=== PATIENT | male | born 1965 | race Caucasian/White ===

== ENCOUNTER 2017-07-02 15:17 | Inpatient (IN) ==
--- NOTE | 2017-07-02 16:25 | Emergency Department Note ---
Disposition Clinical Impression: Intertrochanteric fracture of right femur Qualifiers: Encounter type: initial encounter Fracture type: closed Fracture alignment: nondisplaced Qualified Code(s): S72.144A - Nondisplaced intertrochanteric fracture of right femur, initial encounter for closed fracture Disposition: Admitted As Inpatient Condition: Fair General Adult HPI - General Chief complaint: ED Fall Stated complaint: fall Time Seen by Provider: 07/02/17 15:22 Source: patient, EMS Limitations: no limitations Nursing Notes Reviewed: Yes Vital Signs Reviewed: Yes - History of Present Illness HPI Narrative: Patient is a 52-year-old male who presents by squad from his work after tripping on some material on the floor and falling directly onto his right hip. His main complaint is right hip pain. She denies any head injury or neck injury or any injury to his upper extremity or chest or abdomen. He denies loss of consciousness. 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 He has not been able to bear weight since falling. He said the pain is worse with flexion and extension of his hip. He denies any knee or ankle involvement. No numbness or tingling or weakness in the extremity. Pain Scale: 4 - Related Data Home Medications Medication Instructions Recorded Confirmed No Known Home Drugs 07/02/17 07/02/17 Allergies Allergy/AdvReac Type Severity Reaction Status Date / Time Penicillins Allergy Rash Verified 07/02/17 15:19 All systems ED: reviewed and negative except as stated. Gastrointestinal: Denies: abdominal pain, nausea, vomiting Musculoskeletal: Denies: back pain, neck pain Integumentary: Denies: rash, abrasion Neurological: Denies: headache, weakness Psychiatric: Denies: anxiety, depression Past Medical History - Past Medical History Medical history: Reports: no medical history Psychiatric history: Reports: no psych history - Social History Smoking Status: Current every day smoker Smokeless Tobacco Status: No Alcohol use: Reports: occasionally Drug use: Reports: none Physical Exam Patient does not appear to be in any acute distress. He does have his right leg propped up on 4 blankets. He states his pain is a 110 unless he try to flex or extend his hip and it becomes an 8 out of 10. - General Limitations: no limitations General appearance: alert, appears intoxicated - Head Head exam: atraumatic, normocephalic, normal inspection - Eye Eye exam: Present: normal appearance, PERRL, EOMI - ENT ENT exam: normal exam, normal oropharynx, mucous membranes moist - Neck Neck exam: Present: normal inspection, full ROM, trachea midline. Absent: tenderness - Chest Chest inspection: Present: normal inspection, symmetric chest wall rise. Absent : tenderness - Respiratory Respiratory exam: Present: normal lung sounds bilaterally. Absent: respiratory distress - Cardiovascular Cardiovascular exam: Present: regular rate, normal rhythm, normal heart sounds - Abdominal Exam Abdominal exam: Present: soft, Non-Tender, normal bowel sounds. Absent: tenderness - Extremities Exam Extremities exam: Present: tenderness, other (Patient has a negative leg roll on the right side. He has pain with passive range of motion concerning flexion and extension of the hip. There is no knee involvement or ankle involvement on the right side. He is neurovascularly intact.) - Expanded Lower Extremity Exam Hip/Pelvis exam: Present: tenderness (Patient has tenderness to palpation along the lateral trochanter on the right side.) Knee exam: Present: normal inspection, full ROM. Absent: tenderness Lower leg exam: Present: normal inspection, full ROM. Absent: tenderness Ankle exam: Present: normal inspection, full ROM. Absent: tenderness Foot/toe exam: Present: normal inspection, full ROM. Absent: tenderness Neurovascular/Tendon exam: Present: normal capillary refill. Absent: pulse deficit, motor deficit, sensory deficit, pallor - Back Exam Back exam: Present: normal inspection, full ROM. Absent: tenderness - Neurological Exam Neurological exam: Present: alert, oriented X3 - Psychiatric Psychiatric exam: Present: normal affect, normal mood - Skin Skin exam: Present: warm, dry, intact, normal color Course Course Narrative: Patient's 52-year-old male who fell at work onto his right hip he has lateral tenderness to the trochanter. We ordered a hip x-ray and AP pelvis. The patient has difficulty with bearing weight on his right leg. He states his pain is a 1/10 as long as his leg is propped up on pillows - Reevaluation(s) Reevaluation #1: Patient's hip x-ray shows a inter-trochanteric fracture that is nondisplaced. I will treat the patient with 4 mg of morphine 4 mg of Zofran for pain. Time: 16:46 Reevaluation #2: I spoke with Dr. García. He states he will see the patient, however he would prefer to admit to hospitalist. Time: 17:05 Vital Signs Temperature 98.3 F 07/02/17 15:21 Pulse Rate 71 07/02/17 15:21 Respiratory Rate 18 07/02/17 15:21 Blood Pressure 151/86 07/02/17 15:21 O2 Sat by Pulse Oximetry 99 07/02/17 15:21 Temperature 98.7 F 07/04/17 03:36 Pulse Rate 68 07/04/17 03:36 Respiratory Rate 15 07/04/17 03:36 Blood Pressure 131/72 07/04/17 03:36 O2 Sat by Pulse Oximetry 96 07/04/17 03:36 Oxygen Delivery Oxygen Delivery Room Air Medical Decision Making - Medical Records Medical records reviewed: Yes I reviewed the patient's medical records. - Lab Data Lab results reviewed: Yes I reviewed the patient's lab results. Result diagrams: 07/03/17 04:27 07/03/17 04:27 - Radiology Data Radiology results reviewed: Yes I reviewed the patient's radiology results. Hip X-Ray 07/02/17 15:35 IMPRESSION: Nondisplaced subtrochanteric fracture. D/ / Marcos Ratliff MD / Marcos Ratliff MD Interpreting Provider: Marcos Ratliff MD Attestation Statement - Attestation Attestation: I examined this patient and my medical decision-making was reviewed with the Resident Physician. I agree with the documented findings, disposition and treatment plan as described except to the extent set forth below.
[2017-07-02] MEDS ORDERED: Ondansetron 4 MG/2 ML VIAL IVP ONE (16:53)
[2017-07-02] MEDS ORDERED: *HR* Morphine 2 MG/ML SYRINGE IVP ONE ×3 (17:02→17:40)
[2017-07-02] MEDS: *HR* Morphine 2 MG/ML SYRINGE IVP ONE ×2 (17:06→17:57)
[2017-07-02 20:24] LABS: Basophils # 0.1 K/mcL (0.0-0.2); Basophils % 0.8 %; Eosinophils # 0.1 K/mcL (0.0-0.6); Eosinophils % 0.3 %; Hematocrit 44.9 % (37.5-50.1); Hemoglobin 15.1 g/dL (12.9-16.9); Immature Granulocytes % 0.4 % (0-4); Lymphocytes # 1.6 K/mcL (0.6-4.6); Lymphocytes % 10.7 %; Mean Corpuscular HGB Conc 33.6 g/dL (31.6-35.5); Mean Corpuscular Hemoglobin 29.6 pg (28.0-33.3); Mean Platelet Volume 9.6 fL (9.4-12.4); Monocytes # 0.9 K/mcL (0.0-1.3); Neutrophils # 12.4 K/mcL (1.6-8.9); Platelet Count 245 K/mcL (140-400); Red Cell Distribution Width 12.8 % (11.5-14.5); Segmented Neutrophils % 81.8 %
[2017-07-02 20:37] LABS: BUN/Creatinine Ratio 10 (6-26); Blood Urea Nitrogen 11 mg/dL (8-26); Carbon Dioxide 28 mEq/L (19-29); Chloride 101 mEq/L (98-109); Glucose 181 mg/dL (70-99); Magnesium 1.9 mg/dL (1.6-2.6); Osmolality,Calculated 286 (280-300); Potassium 3.9 mEq/L (3.5-4.5); Sodium 136 mEq/L (136-145); eGFR For African Americans > 60 (> 60); eGFR For Non-African Americans > 60 (> 60)
[2017-07-02 20:39] LABS: INR 1.1; Prothrombin Time 12.1 Seconds (9.4-12.1)
--- NOTE | 2017-07-02 21:35 | Event Note ---
Date of Encounter: 07/02/17 Time of Encounter: 21:33 Patient then examined with nurse practitioner. 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 Orthopedics will evaluate the patient in the morning. Keep NPO after midnight. In case patient needs surgery he has good functional capacity and at least assent to flights of stairs without any symptoms. He denies any prior cardiac history. No chest pain with ambulation. His electro cardiogram shows no ST segment shifts. He should be able to tolerate surgery with no need for further preoperative cardiac testing. Pain control with morphine
[2017-07-02] MEDS ORDERED: *HR* HYDROcodone/Acet 5/325 mg TABLET PO PRN (22:00)
[2017-07-02] MEDS ORDERED: Acetaminophen 325 MG TABLET PO PRN (22:00)
[2017-07-02] MEDS ORDERED: Ondansetron 4 MG/2 ML VIAL IVP PRN (22:00)
[2017-07-02] MEDS ORDERED: Naloxone 0.4 MG/ML INJ IVP PRN (22:00)
[2017-07-02] MEDS ORDERED: *HR* Morphine 2 MG/ML SYRINGE IVP PRN (22:00)
--- NOTE | 2017-07-02 22:26 | Internal Med History&Physical ---
Date of Encounter: 07/03/17 Time of Encounter: 20:30 Assessment and Plan (1) Intertrochanteric fracture of right femur Current visit: Yes Status: Acute Patient presents with fall and injury to his right hip. He states he tripped at work on material but denies any neck or head injury. He denies syncope or dizziness. He states he was unable to get up without assistance and was unable to bear his weight. He states pain is worse with flexion and extension of his hip. Three-view x-ray of the right hip shows nondisplaced intertrochanteric fracture. The femoroacetabular joint is congruent. The ilioischial and iliopectineal lines are intact. Orthopedic surgery consult ordered in ED. PT and OT consults placed for rehabilitation needs. Patient to be placed as falls precautions/up with assist/bed rest with bedside commode with assist only due to pain and unsteadiness. Qualifiers: Encounter type: initial encounter Fracture type: closed Fracture alignment: nondisplaced Qualified Code(s): S72.144A - Nondisplaced intertrochanteric fracture of right femur, initial encounter for closed fracture (2) Fall Current visit: Yes Status: Acute Patient presents with acute fall at work which resulted in current nondisplaced intertrochanteric fracture of the right femur. Patient denies history of falls or syncope and will be placed as falls precautions/up with assist/bed rest with bedside commode with assist only due to pain from fracture. Qualifiers: Encounter type: initial encounter Qualified Code(s): W19.XXXA - Unspecified fall, initial encounter (3) Tobacco abuse counseling Current visit: Yes Status: Acute Patient presents with chronic tobacco abuse. Patient was counseled for over 10 minutes regarding smoking cessation, quitting techniques available, and health benefits of cessation. 21 mg nicotine patch ordered daily. (4) Tobacco abuse Current visit: Yes Status: Chronic Patient presents with history of chronic tobacco abuse smoking 1.5 PPD. 21 mg nicotine patch ordered daily. (5) DVT prophylaxis Current visit: Yes Status: Acute Patient to be placed on DVT prophylaxis due to current admission protocol and bedrest status. Heparin 5000 units subcutaneous every 8 ordered. Internal Medicine - H&P: HPI Chief complaint: Fall/Fracture Admitted From: Emergency Dept Plans for Post Hospital Care: Home History of present illness: Mr. Quiroga is a 52 year old male who presents from the ED with chief complaint of fall and injury to his right hip. He states he tripped at work on material but denies any neck or head injury. He denies syncope or dizziness. He states he was unable to get up without assistance and was unable to bear his weight. He states pain is worse with flexion and extension of his hip. Three-view x- ray of the right hip shows nondisplaced intertrochanteric fracture. The femoroacetabular joint is congruent. The ilioischial and iliopectineal lines are intact. Patient stated his pain is 1 out of 10 unless he flexes or extends and it becomes a 9 out of 10. Patient denies any recent illness, nauseous, vomiting, headache, abdominal pain, generalized weakness, dizziness, syncope, presyncope, or history of falls. Patient currently has no medical history and is occurring every day smoker smoking 1-1/2 packs per day. Tobacco cessation counseling provided to patient for 10 minutes. He reports occasional alcohol use 3-4 times per week. Mr. Quiroga is at moderate risk for morbidity based on current fracture and will be placed his inpatient status with fall precautions/ up with assist/bedrest with bedside commode with assist due to extreme pain and extremity. Stairs have pain medication to be administered per pain management. Orthopedic surgery consult placed in ED. PT and OT consults placed. Patient to be monitored closely for signs of increased pain and/or shortness of breath. Time spent with patient > 40 minutes. Past Med Surg Social Fam HX - Past Medical History Source: patient Medical history: no medical history Psychiatric history: no psych history - Past Surgical History Surgical History: no surgical history - Social History Smoking Status: Current every day smoker Packs per day: 1.5 PPD Smokeless Tobacco Status: No Alcohol use: occasionally (3-4x per week) Drug use: none Occupational status: employed Current living situation: Home Activity Level: Independent ambulation, Very active Recent Out of Country Travel Within the Last 8 Weeks: No Exposure or Possible Exposure to Illness During Travel: No - Family History Father Race: Family Member Ethnicity: Non- Hx Family Cardiac Disorders: Yes Internal Medicine - H&P: Meds No Known Home Drugs 07/02/17 [History] Allergies Penicillins Allergy (Verified 07/02/17 15:19) Rash All Systems PM: A 10-system review of systems was performed and is negative for pertinent findings except as documented above in the HPI. - Constitutional Constitutional: no chills, no fever(s), no night sweats - EENT Eyes: no change in vision, no discharge, no pain, no photophobia Ears: no ear discharge, no ear pain, no tinnitus Nose, mouth and throat: no dysphagia, no nasal discharge, no neck pain, no sore throat - Breasts Breasts: as per HPI - Cardiovascular Cardiovascular ROS IM: no chest pain, no diaphoresis, no dyspnea, no lightheadedness, no palpitations, no syncope - Respiratory Respiratory: no cough, no dyspnea, no wheezing, no excessive phlegm production - Gastrointestinal Gastrointestinal: no abdominal pain, no diarrhea, no hematemesis, no hematochezia, no melena, no nausea, no vomiting - Genitourinary Genitourinary ROS male: as per HPI - Musculoskeletal Musculoskeletal ROS IM: as per HPI, other (Pain in right hip) - Integumentary Integumentary IM: no rash, no unusual bruising - Neurological Neurological ROS: no confusion, no convulsions, no focal weakness, no numbness, no tingling, no tremor(s) - Psychiatric Psychiatric: as per HPI - Endocrine Endocrine IM: as per HPI - Hematologic/Lymphatic Hematologic/Lymphatic: no easy bruising - Allergic/Immunologic Allergic/Immunologic: as per HPI - Constitutional Vitals: Temp Pulse Resp BP Pulse Ox 98.8 F 86 16 132/70 96 07/02/17 20:48 07/02/17 20:48 07/02/17 20:48 07/02/17 20:48 07/02/17 20:48 General appearance: Present: cooperative, mild distress, A&O X 3, pleasant, answers questions appropriately - Head Head exam: Present: atraumatic, normocephalic - Eye Eye exam: Present: PERRL, conjuntiva pink, sclera anicteric Pupils: Present: PERRL - ENT ENT exam: Present: normal exam, normal external ear exam - Neck Neck exam general surgery: Present: supple, trachea midline. Absent: lymphadenopathy - Respiratory Respiratory exam: Present: CTAB. Absent: accessory muscle use, rales, rhonchi, wheezes - Cardiovascular Cardiovascular exam: Present: RRR, +S1, +S2. Absent: diastolic murmur, gallop, rubs, systolic murmur - GI/Abdominal GI/Abdominal exam: Present: normal bowel sounds, soft, no peritoneal signs. Absent: distended, tenderness - Rectal Rectal exam: Present: deferred - Additional comments: exam deferred. - Extremities Exam Extremities exam: Present: warm, radial pulses palpable and symetrical. Absent : calf tenderness, cyanotic, pedal edema Additional comments: Patient is experiencing right hip pain and discomfort. - Back Exam Back exam: Present: normal inspection - Neurological Exam Neurological exam: Present: CN II-XII intact, oriented X3, no focal deficits. Absent: pronater drift, facial droop, speech deficit - Psychiatric Psychiatric exam: Present: normal affect, normal mood - Skin Skin exam: Present: dry, intact Internal Med - H&P Results - Labs CBC & Chem 7: 07/02/17 20:16 07/02/17 20:16 Labs: Short CBC 07/02/17 Range/Units 20:16 WBC 15.2 H (4.3-11.1) K/mcL Hgb 15.1 (12.9-16.9) g/dL Hct 44.9 (37.5-50.1) % Plt Count 245 (140-400) K/mcL Neutrophils # 12.4 H (1.6-8.9) K/mcL BMP 07/02/17 20:16 Sodium 136 Potassium 3.9 Chloride 101 Carbon Dioxide 28 BUN 11 Creatinine 1.07 Glucose 181 H Calcium 9.0 - EKG Data EKG shows normal: sinus rhythm Rate: normal - EKG Data Prior EKG available for review: no EKG comments: 07/03/17 02:36 EKG dated 07/02/17 shows normal sinus rhythm and normal ECG. - Diagnostic Studies Other Images Additional comments: Impressions Hip X-Ray 07/02/17 15:35 IMPRESSION: Nondisplaced subtrochanteric fracture. D/ / Marcos Ratliff MD / Marcos Ratliff MD Interpreting Provider: Marcos Ratliff MD
[2017-07-02] MEDS: *HR* Heparin 5,000 UNIT/ML VIAL SQ SCH (23:37)
[2017-07-03 04:50] LABS: Basophils # 0.1 K/mcL (0.0-0.2); Basophils % 1.2 %; Eosinophils # 0.2 K/mcL (0.0-0.6); Eosinophils % 2.1 %; Hematocrit 43.7 % (37.5-50.1); Hemoglobin 14.9 g/dL (12.9-16.9); Immature Granulocytes % 0.5 % (0-4); Lymphocytes % 19.9 %; Mean Corpuscular HGB Conc 34.1 g/dL (31.6-35.5); Mean Corpuscular Hemoglobin 30.2 pg (28.0-33.3); Mean Corpuscular Volume 88.5 fL (83.0-100.0); Mean Platelet Volume 9.7 fL (9.4-12.4); Monocytes # 0.8 K/mcL (0.0-1.3); Monocytes % 8.2 %; Neutrophils # 6.8 K/mcL (1.6-8.9); Platelet Count 220 K/mcL (140-400); Red Blood Count 4.94 M/mcL (4.19-5.50); Red Cell Distribution Width 13.1 % (11.5-14.5); Segmented Neutrophils % 68.1 %
[2017-07-03 05:08] LABS: BUN/Creatinine Ratio 10 (6-26); Blood Urea Nitrogen 9 mg/dL (8-26); Calcium 8.9 mg/dL (8.6-10.8); Carbon Dioxide 27 mEq/L (19-29); Chloride 103 mEq/L (98-109); Cholesterol 180 mg/dL (< 200); Glucose 102 mg/dL (70-99); HDL Cholesterol 45 mg/dL (40-59); LDL Cholesterol,Calculated 119 mg/dL (0-99); Magnesium 2.1 mg/dL (1.6-2.6); Osmolality,Calculated 283 (280-300); Potassium 3.9 mEq/L (3.5-4.5); Sodium 137 mEq/L (136-145); Triglycerides 78 mg/dL (< 150); eGFR For African Americans > 60 (> 60); eGFR For Non-African Americans > 60 (> 60)
--- NOTE | 2017-07-03 07:56 | Orthopedic Consult Note ---
Date of Encounter: 07/03/17 Time of Encounter: 07:40 Assessment and Plan (1) Intertrochanteric fracture of right femur Current Visit: Yes Status: Acute Xrays show right hip intertrochanteric fracture which will require surgical fixation. Plan for right hip IM nailing by Dr. García today. I discussed the procedure as well as r/b/a with patient and all questions were answered. Consent was obtained and placed in patient's chart. NPO today. Pain control per hospitalist. Qualifiers: Encounter type: initial encounter Fracture type: closed Fracture alignment: nondisplaced Qualified Code(s): S72.144A - Nondisplaced intertrochanteric fracture of right femur, initial encounter for closed fracture History of Present Illness Chief complaint: right hip pain HPI: Mr. Quiroga is a 52 year old male who presented to the ER yesterday for right hip pain that started after he tripped over a cord on the ground at work yesterday. States he landed directly on the right hip and had instant sharp pain in the hip that does not radiate. Currently, he only has pain if he tries to move the leg, no pain at rest. Denies any pain anywhere else. Denies numbness or tingling in lower extremities. Denies hitting head or LOC from injury. Denies chest pain, SOB, fevers. He typically ambulates well. Past Med Surg Social Fam HX - Past Medical History Medical history: no medical history Psychiatric history: no psych history - Past Surgical History Surgical History: no surgical history - Social History Smoking Status: Current every day smoker Packs per day: 1.5 PPD Smokeless Tobacco Status: No Alcohol use: occasionally (3-4x per week) Drug use: none - Family History Father Race: Family Member Ethnicity: Non- Hx Family Cardiac Disorders: Yes Medications and Allergies No Known Home Drugs 07/02/17 [History] Allergies Penicillins Allergy (Verified 07/02/17 15:19) Rash All Systems Reviewed: A 10-system review of systems was performed and is negative for pertinent findings except as documented above in the HPI. - Constitutional Constitutional: as per HPI - Cardiovascular Cardiovascular: as per HPI - Respiratory Respiratory: as per HPI - Musculoskeletal Musculoskeletal: as per HPI Physical Exam - Constitutional Vitals: Temp Pulse Resp BP Pulse Ox 98.1 F 66 14 113/68 96 07/03/17 07:32 07/03/17 07:32 07/03/17 07:32 07/03/17 07:32 07/03/17 07:32 - Hip right Tenderness with palpation: posterior (RLE is shortened and externally rotated with no open wounds or lesions noted. Tenderness to palpaiton of posterior hip. ROM of hip restricted secondary to pain/known fracture, good dorsiflexion of foot. No calf tenderness to palpation. NV intact.) Results - Labs Result Diagrams: 07/03/17 04:27 07/03/17 04:27 Labs: Abnormal lab results Glucose 102 mg/dL (70-99) H 07/03/17 04:27 LDL Cholesterol, Calc 119 mg/dL (0-99) H 07/03/17 04:27 H & H 07/02/17 07/03/17 Range/Units 20:16 04:27 Hgb 15.1 14.9 (12.9-16.9) g/dL Hct 44.9 43.7 (37.5-50.1) % All other labs normal. - Diagnostic results Hip x-ray: report reviewed, image reviewed Consult Discharge Plan - Plan Referrals: NONE,PCP [Primary Care Provider] - - Attending Attestation Case and plan of care discussed with supervising physician who was available for all aspects of care.
[2017-07-03] MEDS ORDERED: Nicotine 21 MG PATCH.TD24 TD SCH (09:00)
[2017-07-03] MEDS: *HR* Heparin 5,000 UNIT/ML VIAL SQ SCH ×2 (09:18→16:34)
[2017-07-03] MEDS ORDERED: 0.9 % Sodium Chloride 1,000 ML IVC SCH (09:30)
--- NOTE | 2017-07-03 12:16 | Internal Med Progress Note ---
Date of Encounter: 07/03/17 Time of Encounter: 09:15 - Assessment and plan (1) Intertrochanteric fracture of right femur Current Visit: Yes Status: Acute Assessment and plan: Continue supportive care and pain control. Patient was evaluated by orthopedics and is scheduled for surgery later today. PTOT after surgery per orthopedics recommendations. Moderate risk for complications as patient is receiving narcotic medications Qualifiers: Encounter type: initial encounter Fracture type: closed Fracture alignment: nondisplaced Qualified Code(s): S72.144A - Nondisplaced intertrochanteric fracture of right femur, initial encounter for closed fracture (2) Tobacco abuse Current Visit: Yes Status: Chronic Assessment and plan: On nicotine patch (3) DVT prophylaxis Current Visit: Yes Status: Acute Assessment and plan: On heparin - Subjective Interval history: Patient continues to have pain in his right hip but this improves when patient is at rest. Receiving narcotic medications which are helping keeping his pain down. Denies any numbness or tingling in his lower extremities. No loss of sensation. - Constitutional Vitals: Temp Pulse Resp BP Pulse Ox 98.0 F 63 18 126/76 96 07/03/17 11:40 07/03/17 11:40 07/03/17 11:40 07/03/17 11:40 07/03/17 11:40 General appearance: Present: cooperative, mild distress, A&O X 3, pleasant, answers questions appropriately - Respiratory Respiratory exam: Present: CTAB. Absent: accessory muscle use, rales, rhonchi, wheezes - Cardiovascular Cardiovascular exam: Present: RRR, +S1, +S2. Absent: diastolic murmur, gallop, rubs, systolic murmur - GI/Abdominal GI/Abdominal exam: Present: normal bowel sounds, soft, no peritoneal signs. Absent: distended, tenderness - Extremities Exam Extremities exam: Present: tenderness (in right hip), warm, radial pulses palpable and symetrical. Absent: calf tenderness, cyanotic, pedal edema - Neurological Exam Neurological exam: Present: CN II-XII intact, oriented X3, no focal deficits. Absent: facial droop, speech deficit - Skin Skin exam: Present: dry, intact Internal Medicine: Result - Labs CBC & Chem 7: 07/03/17 04:27 07/03/17 04:27 Labs: Short CBC 07/02/17 07/03/17 Range/Units 20:16 04:27 WBC 15.2 H 9.9 (4.3-11.1) K/mcL Hgb 15.1 14.9 (12.9-16.9) g/dL Hct 44.9 43.7 (37.5-50.1) % Plt Count 245 220 (140-400) K/mcL Neutrophils # 12.4 H 6.8 (1.6-8.9) K/mcL BMP 07/02/17 07/03/17 20:16 04:27 Sodium 136 137 Potassium 3.9 3.9 Chloride 101 103 Carbon Dioxide 28 27 BUN 11 9 Creatinine 1.07 0.91 Glucose 181 H 102 H Calcium 9.0 8.9 - ABG Interpretation ABG results: PT/INR, D-dimer PT 12.1 Seconds (9.4-12.1) 07/02/17 20:16 Consult Discharge Plan - Plan Referrals: NONE,PCP [Primary Care Provider] -
--- NOTE | 2017-07-03 12:39 | Electrocardiograph Report ---
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
--- NOTE | 2017-07-03 12:40 | Electrocardiograph Report ---
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
--- NOTE | 2017-07-03 15:14 | Anesthesia Evaluation PreOp ---
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 HX Other Medical History: Denies Any Significant HX Alcohol Use: occasionally (3-4x per week) Drug use: none Medications and Allergies No Known Home Drugs 07/02/17 [History] Allergies Penicillins Allergy (Verified 07/02/17 15:19) Rash - Meds/Allergy Pre-op Review Medications Reviewed: Yes Allergies Reviewed: Yes Beta Blockers on Current Med List: No Anesthesia Results - Labs 07/03/17 04:27 07/03/17 04:27 - Imaging EKG: image reviewed (SR) Anesthesia Exam O2 Sat Height 1.91 m Height 1.91 m Weight 82.7 kg Weight 81.647 kg Weight 81.647 kg O2 Sat by Pulse Oximetry 97 O2 Sat by Pulse Oximetry 96 O2 Sat by Pulse Oximetry 96 O2 Sat by Pulse Oximetry 96 O2 Sat by Pulse Oximetry 95 O2 Sat by Pulse Oximetry 96 O2 Sat by Pulse Oximetry 99 Vital Signs Temp Pulse Resp BP Pulse Ox 98.3 F 71 18 151/86 99 07/02/17 15:21 07/02/17 15:21 07/02/17 15:21 07/02/17 15:21 07/02/17 15:21 Height: 6'3'' Weight: 182# - HEENT Pupil (Motor): Pupils equal, EOMI Mallampati: I Teeth: Edentulous Oral Opening: Greater than 3 - DRAW MACHINE OPERATOR LOC: Oriented DRAW MACHINE OPERATOR Motor: Normal RUE, Normal LUE, Normal RLE, Normal LLE, Normal Face DRAW MACHINE OPERATOR Sensory: Normal: RUE, LUE, RLE, LLE, Face - Cardiac Rhythm: Regular Murmur: None JVD: No Carotid Bruit: No - Pulmonary Breath Sounds: bilateral Clear Respiratory Effort: Symmetrical Anesthesia Assess/Plan ASA Score: 2 Modified [place] Scale for Level of Consciousness: Cooperative, oriented, and tranquil Anesthetic Plan: General Autologous Blood: Yes Monitoring Plan: Standard Monitors Recovery Plan: PACU
[2017-07-03] MEDS ORDERED: *HR* FentaNYL (PF) 100 MCG/2 ML VIAL ONE (15:31)
[2017-07-03] MEDS ORDERED: *HR* Succinylcholine 200 MG/10 ML VIAL IVP ONE (15:31)
[2017-07-03] MEDS ORDERED: Lidocaine -MPF 2% 2 ML VIAL ONE (15:31)
[2017-07-03] MEDS ORDERED: *HR* Propofol 200 MG/20 ML VIAL IVP ONE (15:31)
[2017-07-03] MEDS ORDERED: *HR* Midazolam HCl 2 MG/2 ML VIAL ONE ×2 (15:31→16:08)
[2017-07-03] MEDS ORDERED: Albuterol 2.5 MG/3 ML NEBULIZER IH ONE (15:54)
[2017-07-03] MEDS ORDERED: Albuterol 2.5 MG/3 ML NEBULIZER ONE (15:55)
[2017-07-03] MEDS ORDERED: Clindamycin 900 MG/50 ML 900 MG/50 ML IV.SOLN IVPB ONE (15:56)
[2017-07-03] MEDS ORDERED: Lidocaine -MPF 4% 5 ML AMPUL ONE (16:07)
[2017-07-03] MEDS ORDERED: EPHEDrine 50 MG/ML VIAL ONE (16:29)
[2017-07-03] MEDS ORDERED: *HR* HYDROmorphone 2 MG/ML SYRINGE ONE (16:49)
[2017-07-03] MEDS ORDERED: *HR* HYDROmorphone (PF) 1 MG/ML SYRINGE IVP PRN (16:58)
[2017-07-03] MEDS ORDERED: *HR* Promethazine 25 MG/ML VIAL IVP PRN (16:58)
[2017-07-03] MEDS ORDERED: *HR* Meperidine 25 MG/ML SYRINGE IVP PRN (16:58)
--- NOTE | 2017-07-03 17:57 | Anesthesia Evaluation Post Op ---
Date of Encounter: 07/03/17 Time of Encounter: 17:56 - Vital Signs Vital Signs: Vital Signs/O2 Sat, Most Current Temp Pulse Resp BP Pulse Ox 98.2 F 86 16 127/88 100 07/03/17 15:08 07/03/17 17:48 07/03/17 17:48 07/03/17 17:48 07/03/17 17:48 - Lungs Lungs: Clear Ascult./Percussion - Airway Airway: Non-obstructed - Cardiovascular Regular Rate - Mental Status Mental Status: Alert & Oriented, Answers Appropriately - Pain Pain Scale: 0 Pain Scale used: Numeric (1 - 10) - Nausea Vomiting Nausea Vomiting: Not Present - Hydration Hydration: NPO, Has not voided - Discharge PostOp Status: Transfer Patient to floor
[2017-07-03] MEDS ORDERED: traMADol 50 MG TABLET PO PRN (18:31)
[2017-07-03] MEDS ORDERED: Naloxone 0.4 MG/ML INJ IVP PRN (18:31)
[2017-07-03] MEDS ORDERED: *HR* OxyCODONE/APAP 5/325 TABLET PO PRN (18:31)
[2017-07-03] MEDS ORDERED: *HR* OxyCODONE Immed Rel 5 MG TABLET PO PRN (18:31)
[2017-07-03] MEDS ORDERED: Ondansetron 4 MG/2 ML VIAL IVP PRN (18:31)
[2017-07-03] MEDS: *HR* HYDROmorphone (PF) 1 MG/ML SYRINGE IVP PRN ×2 (19:58→23:58)
[2017-07-03] MEDS: D5% in 0.45% NACL 1,000 ML IVC SCH (19:59)
[2017-07-03] MEDS: Clindamycin 900 MG/50 ML 900 MG/50 ML IV.SOLN IVPB SCH (23:26)
[2017-07-04 06:45] LABS: Hematocrit 42.2 % (37.5-50.1); Hemoglobin 14.3 g/dL (12.9-16.9)
[2017-07-04] MEDS ORDERED: Nicotine 21 MG PATCH.TD24 TD SCH (09:00)
[2017-07-04] MEDS ORDERED: Cholecalciferol (D-3) 1,000 UNIT TABLET PO SCH (09:00)
[2017-07-04] MEDS: Clindamycin 900 MG/50 ML 900 MG/50 ML IV.SOLN IVPB SCH (09:44)
[2017-07-04 11:44] VITALS: BP 127/70
[2017-07-04] MEDS: D5% in 0.45% NACL 1,000 ML IVC SCH (13:05)
--- NOTE | 2017-07-04 13:25 | Orthopedics Progress Note ---
Date of Encounter: 07/04/17 Time of Encounter: 11:50 - Assessment and Plan (1) Intertrochanteric fracture of right femur Current Visit: Yes Status: Acute POD#1 right hip IM nailing Dressings to be changed tomorrow to right hip. Plan for DC home with home therapy. WBAT. Apply ice as needed to right hip. DVT prophylaxis: aspirin 325mg daily for 6 weeks Follow up with Elizabeth Johnson in [facility] office on 07/17/17 at 10:00am. Qualifiers: Encounter type: initial encounter Fracture type: closed Fracture alignment: nondisplaced Qualified Code(s): S72.144A - Nondisplaced intertrochanteric fracture of right femur, initial encounter for closed fracture Subjective Principal diagnosis: POD#1 right hip IM nailing Interval history: Patient doing well with minimal pain currently and no events overnight. Denies calf pain. States therapy had him up walking and he feels comfortable using walker. Objective Vital signs: Vital Signs Temp Pulse Resp BP Pulse Ox 07/04/17 11:40 98.1 F 85 16 127/70 98 07/04/17 07:17 98.1 F 65 16 131/76 98 07/04/17 03:36 98.7 F 68 15 131/72 96 07/03/17 23:52 98.8 F 76 16 140/69 95 07/03/17 21:27 98.3 F 83 14 135/81 94 07/03/17 20:44 98.3 F 84 14 137/75 94 07/03/17 19:36 98.6 F 82 14 138/79 94 07/03/17 18:55 97.9 F 80 15 134/76 98 07/03/17 18:25 97.8 F 75 16 134/76 96 07/03/17 18:10 97.7 F 74 16 129/78 95 07/03/17 18:03 97.8 F 74 16 126/82 96 07/03/17 17:58 78 16 125/88 99 07/03/17 17:48 86 16 127/88 100 07/03/17 17:38 83 14 139/98 98 07/03/17 15:08 98.2 F 67 18 135/80 97 Intake and Output 07/03/17 07/04/17 07/04/17 23:59 07:59 15:59 Intake Total 0 / 0 100 / 100 1240 / 1240 Output Total 1000 / 1000 1875 / 1875 400 / 400 Balance -1000 / -1000 -1775 / -1775 840 / 840 Intake: IV Fluids 100 / 100 1000 / 1000 D5% And 0.45% Nacl 1000 1000 / 1000 Ml Bag 1,000 ML @ 75 mls/ hr IVC .[id number] WILLY Rx#: [id number] Cleocin Premix 900 MG/50 100 / 100 ML 900 mg In 50 ml @ 50 mls/hr IVPB Q8HR WILLY Rx#: [id number] Oral 0 / 0 0 / 0 240 / 240 Output: Urine 950 / 950 1875 / 1875 400 / 400 Estimated Blood Loss 50 / 50 Other: Meal NPO Breakfast Percent of Meal Consumed 100% Weight 76.9 kg Patient Weight 07/04/17 23:59 Weight 76.9 kg Incision: clean and dry (dressings c/d/i with no visible drainage or surrounding erythema, no calf tenderness to palpation) - Labs CBC & BMP: 07/04/17 06:27 07/03/17 04:27 Labs: Abnormal lab results Glucose 102 mg/dL (70-99) H 07/03/17 04:27 POC Glucose 102 (58-89) H 07/03/17 11:28 LDL Cholesterol, Calc 119 mg/dL (0-99) H 07/03/17 04:27 - VTE Documentation of Mechanical Device: Intermittent pneumatic compression device Consult Discharge Plan - Plan Referrals: NONE,PCP [Primary Care Provider] -
--- NOTE | 2017-07-04 13:30 | Physician Discharge Referral ---
Home Health/Hosp Referral Info Transfer to: Home Health Attending Provider: Dr. García - Diagnosis (1) Intertrochanteric fracture of right femur Priority: Primary Status: Acute - Respiratory Orders Smoking Cessation: Smoking cessation has been advised. For more information, call the [place] Tobacco Quit Line at 1-268-IFEQ-NOW. - Dressing/Wound Care Site: Daily dressing changed to right hip - Diet/Nutrition Diet/Nutrition Orders: Regular - Activity Activity Orders: Ambulate, Walker - Services Needed Following services are medically necessary services: Physical Therapy, Occupational Therapy - Transfer Medications Prescriptions: OxyCODONE/APAP 5/325 [Percocet 5/325 MG] 1 each PO Q4HR PRN #20 tab PRN Reason: Severe Pain Acetaminophen 650 mg PO Q6H PRN #60 capsule PRN Reason: Mild To Moderate Pain Aspirin 325 mg PO DAILY #60 tablet Calcium Carbonate [Tums] 1,000 mg PO TID #90 tab Cholecalciferol (Vitamin D3) [Vitamin D3] 1,000 unit PO DAILY #30 tab.chew Home Medications: Acetaminophen 650 mg PO Q6H PRN #60 capsule 07/04/17 [Rx] Aspirin 325 mg PO DAILY #60 tablet 07/04/17 [Rx] Calcium Carbonate [Tums] 1,000 mg PO TID #90 tab 07/04/17 [Rx] Cholecalciferol (Vitamin D3) [Vitamin D3] 1,000 unit PO DAILY #30 tab.chew 07/04 [Rx] OxyCODONE/APAP 5/325 [Percocet 5/325 MG] 1 each PO Q4HR PRN #20 tab 07/04/17 [Rx ] Allergies/Adverse Reactions: Allergies Penicillins Allergy (Verified 07/02/17 15:19) Rash Certification: Further, I certify that my clinical findings support that this patient is homebound (i.e. absences from home require considerable and taxing effort and are for medical reasons or tenriism services or infrequently or short duration when for other reasons) because: Homebound Reason: Post-surgery restriction and or conditions limit ability to leave home Attestation: My signature below is to certify that this patient is under my care and that I, or nurse practitioner, or a physician assistant fitness manager working with me, has a face-to- face encounter with this patient.
--- NOTE | 2017-07-04 14:05 | Discharge Summary ---
Date of Encounter: 07/04/17 Time of Encounter: 09:15 - Discharge Diagnosis (1) Intertrochanteric fracture of right femur Priority: Primary Status: Acute Qualifiers: Encounter type: initial encounter Fracture type: closed Fracture alignment: nondisplaced Qualified Code(s): S72.144A - Nondisplaced intertrochanteric fracture of right femur, initial encounter for closed fracture (2) Tobacco abuse Priority: Secondary Status: Chronic (3) DVT prophylaxis Priority: Secondary Status: Acute - Discharge Medications Prescriptions: OxyCODONE/APAP 5/325 [Percocet 5/325 MG] 1 each PO Q4HR PRN #20 tab PRN Reason: Severe Pain Acetaminophen 650 mg PO Q6H PRN #60 capsule PRN Reason: Mild To Moderate Pain Aspirin 325 mg PO DAILY #60 tablet Calcium Carbonate [Tums] 1,000 mg PO TID #90 tab Cholecalciferol (Vitamin D3) [Vitamin D3] 1,000 unit PO DAILY #30 tab.chew Home Medications: Acetaminophen 650 mg PO Q6H PRN #60 capsule 07/04/17 [Rx] Aspirin 325 mg PO DAILY #60 tablet 07/04/17 [Rx] Calcium Carbonate [Tums] 1,000 mg PO TID #90 tab 07/04/17 [Rx] Cholecalciferol (Vitamin D3) [Vitamin D3] 1,000 unit PO DAILY #30 tab.chew 07/04 [Rx] OxyCODONE/APAP 5/325 [Percocet 5/325 MG] 1 each PO Q4HR PRN #20 tab 07/04/17 [Rx ] Allergies/Adverse Reactions: Allergies Penicillins Allergy (Verified 07/02/17 15:19) Rash Procedures/tests Complete & Pending: Procedures Performed prior 72 hours Category Date Time Status ECG 12 lead ECG [ECG] Routine Y 07/02/17 20:37 Completed EKG [ECG 12 lead ECG] [ECG] Stat Y 07/02/17 19:43 Completed Date of admission: 07/02/17 17:46 Primary care physician: PCP NONE Consults: 07/02/17 22:03 Consult to Physical Therapy [CONS] Routine Comment: Evaluate, develop and implement POC Reason for Consult: Patient has Non-displaced intertrochanteric fracture of the right femur and will require assistance with ambulation 07/02/17 22:04 Consult to Occupational Therapy [CONS] Routine Comment: Evaluate, develop and implement POC Reason for Consult: Patient has Non-displaced intertrochanteric fracture of the right femur and will require assistance with ambulation 07/03/17 18:31 Consult to Occupational Therapy [CONS] Routine Comment: Evaluate, develop and implement POC Reason for Consult: post hip surgery Consult to Orthopedic Navigator [CONS] [CONS] Routine Consult to Physical Therapy [CONS] Routine Comment: Evaluate, develop and implement POC Reason for Consult: post hip surgery Consult to Jaw Skinner [CONS] Routine Reason for SW Consult: post -op hip fracture RT Post Op Consult [CONS] Routine Discharging clinician: Nraa Grace Anticipated date of discharge: 07/04/17 - Patient Status Disposition: Home Health Service Condition: Good Functional capacity at discharge: uses cane/walker Overall status at discharge: patient is progressing back to baseline - Discharge Instructions Instructions: Open Reduction Internal Fixation (DC) Follow Up With: Elizabeth Johnson PAC [Physician Acid Conditioning Worker] - 07/17/17 10:00 am - Diet and Activity Activity: as per physical therapy, increase activity as tolerated, return to work once cleared by your PCP/specialist Diet: advance to your usual diet Hospital course: Mr. Quiroga is a 52 year old male patient with no significant past medical history who was admitted here following a fall with resultant Right femur intertrochanteric fracture. Patient was admitted here for orthopedic evaluation and pain management. Patient was evaluated by orthopedics and underwent surgery yesterday with right hip intramedullary nailing. Patient has been evaluated by physical therapy and recommended home physical therapy. Orthopedics has cleared him for discharge and will follow up with him in clinic. He has also been recommended to take aspirin 325 mg daily for DVT prophylaxis for the next 6 weeks. Patient is a chronic smoker and has been counseled about cessation. - Time Spent with Patient Total time spent providing and/or coordinating discharge services: Less than 30 minutes (25 min) - Constitutional Vitals: Temp Pulse Resp BP Pulse Ox 98.1 F 85 16 127/70 98 07/04/17 11:40 07/04/17 11:40 07/04/17 11:40 07/04/17 11:40 07/04/17 11:40 General appearance: Present: cooperative, mild distress, A&O X 3, pleasant, answers questions appropriately - Neck Neck exam general surgery: Present: supple, trachea midline. Absent: lymphadenopathy - Cardiovascular Cardiovascular exam: Present: RRR, +S1, +S2. Absent: diastolic murmur, gallop, rubs, systolic murmur - GI/Abdominal GI/Abdominal exam: Present: normal bowel sounds, soft, no peritoneal signs. Absent: distended, tenderness - Extremities Exam Extremities exam: Present: tenderness (right hip and thigh), warm, radial pulses palpable and symmetrical. Absent: calf tenderness, cyanotic, pedal edema - VTE Documentation of Mechanical Device: Intermittent pneumatic compression device
[2017-07-04] MEDS ORDERED: *HR* Enoxaparin 30 MG/0.3 ML SYRINGE SQ SCH (16:16)
--- NOTE | 2017-07-05 08:44 | Operative Note ---
Date of procedure: 07/03/17 Pre-op diagnosis: Right hip intertrochanteric fracture Post-op diagnosis: same Procedure: Right hip intramedullary nailing Anesthesia: OFELIA Surgeon: Jason García Estimated blood loss (cc): 50 Specimen: 0 Condition: stable Disposition: PACU Procedure in Detail: The patient received IV antibiotics in the holding area. He was brought to the operating room, sign in was performed. The patient underwent general anesthesia on the hospital bed. He was then transferred to the fracture table in supine position. The patient was positioned with the support groin post, the affected right lower extremity in the traction fan and the contralateral lower extremity in a well-padded limb fan with a hip flexed and abducted out of the way. Fluoroscopy was then brought in, the fractures visualized, and the fracture reduced. We checked on AP and true lateral view of the hip. Once satisfactory the right hip, from the pelvis down to the knee, was prepped and draped in usual sterile fashion. A timeout was performed. The level of the greater trochanter was palpated, a 4-5 cm oblique incision was made just proximally, , followed by Bovie dissection. The hip abductor was sharply split in line with its fibers with a curved Zaldivar scissors. The tip of the greater trochanter was palpable. A curved awl was then positioned on the tip. Its position was checked on fluoroscopy, slightly advanced, and we checked the lateral view. Once appropriately positioned, the aggressive awl was then used to open the proximal femur down to level of the lesser trochanter. A short gamma nail with 130 degree neck angle, 11 mm diameter, was assembled, and appropriately inserted into the proximal femur. The patient had slight increased valgus hips, and the 130 degree nail was chosen. The appropriate level was checked under fluoroscopy. The trochars were placed in the jig at 130 degree neck angle was then positioned against the skin, and the radiolucent guide was used to assist in positioning. Once satisfactory a 2.5 cm incision was made, the fascia was bluntly split along with the muscle fibers of the vastus lateralis. The triple trocar was advanced up against the lateral cortex. The guidepin was then driven up into the femoral head, checking AP and lateral views. A 115 mm length lag screw was chosen. Overdrilled the guidewire , and the lag screw was inserted over the guidewire. Once close to the edge of the femoral head, the T-handled was held parallel to the nail. The setscrew was then positioned but not fully tightened. Traction was then taken off the leg, and the fracture compressed. The setscrew was fully tightened at the top, and then backed off a quarter turn to allow the lag screw to slide if needed. The triple trochars for the distal static locking screw were placed in the jig, a 1 cm longitudinal incision was made. The trochars were advanced to the cortex , and drilled across. The depth was measured and a 35 mm by 5 mm bicortical screw was placed. The patient's cortical bone was very thick and hard, the screw head started stripping before sinking the last 1-2 mm. It also stripped trying to remove it and was left alone. All trochars and jig were removed. Final fluoroscopy shots were taken and saved showing good AP and lateral views of the hip and also distally at the tip of the nail. The wounds were irrigated with normal saline. Fascia over the abductors was closed with 1 Vicryl [id number] stitches, including the deep subcutaneous fat layer. Subcutaneous tissues were closed with 2-0 Vicryl, and the skin incisions were closed with love. Sterile dressings were applied. The patient was transferred to hospital bed where he was extubated and taken to recovery room in stable condition.
== END 2017-07-04 15:54 | disposition home health service (06) | DRG 482 ==
LOC: EMEROO 15:17 → SUATTDRO 17:46 → 3ANU 17:46
PROVIDERS: ADMIT Internal Medicine Endocrinology, Diabetes & Metabolism; ATTEND Internal Medicine